=== PATIENT | female | born 1935 | race Caucasian/White ===

== ENCOUNTER 2016-04-27 11:04 | Day surgery (SDC) | payer MEDICARE, OTHER ==
[~2016-04-27] VITALS: Ht 154.9 cm; Wt 74.1 kg
[~2016-04-27 11:04] MED LIST: CRAN1CAP7 PO; LIDOCAINE 1% (10mg/ml) 2ml SDV INJ ONE; LISI10TA7 PO; LORA0.5T2 PO; SIMV20TA6 PO
--- OUTSIDE RECORDS SUMMARY | 2016-04-27 11:09 | XMS REPORT | Referral Summary ---
Author Author [facility], Immediate Care Organization [facility] Address Unknown Phone Unavailable Care Team Providers Care Matrix Plater Name Role Phone Shannon Delgado Primary Care Physician [phone] Encounter VC Date(s): 12/11/15 - 12/11/15 [facility], [address] [place] [address] Discharge Diagnosis: Right low back pain Discharge Diagnosis: Urine frequency Discharge Disposition: 01-Home or Self Care Attending Physician: Juan Walton PA-C Admitting Physician: Juan Walton PA-C Vital Signs Most recent to 1 oldest [Reference Range]: Temperature Tympanic 36.5 degC [36.6-38.1 degC] *LOW* (12/11/15 4:58 PM) Peripheral Pulse 78 bpm Rate [60-100 bpm] (12/11/15 4:58 PM) Respiratory Rate 18 br/min [14-20 br/min] (12/11/15 4:58 PM) Blood Pressure 158/90 mmHg [90-140/60-90 mmHg] *HI* (12/11/15 4:58 PM) SpO2 96 % (12/11/15 4:58 PM) Problem List Condition Effective Dates Status Health Status Informant Benign essential Active hypertension (disorder)(Confirmed ) Obesity(Confirmed) Active patient Pure Active hypercholesterolemia (disorder)(Confirmed ) Allergies, Adverse Reactions, Alerts No Known Medication Allergies Medications Calcium 600+D tabs, Oral, TID, 0 Refill(s) Start Date: 09/06/13 Status: Ordered Cranberry oral capsule 0 Refill(s) Start Date: 09/06/13 Status: Ordered lisinopril 10 mg oral tablet See Instructions, TAKE ONE TABLET BY MOUTH ONCE A DAY, # 90 tabs, 1 Refill(s), eRx: [facility] #[id number], TAKE ONE TABLET BY MOUTH ONCE A DAY Start Date: 10/05/15 Status: Ordered multivitamin Daily, 0 Refill(s) Start Date: 09/06/13 Status: Ordered simvastatin 20 mg oral tablet See Instructions, TAKE ONE TABLET BY MOUTH EVERY NIGHT AT BEDTIME, # 90 tabs, 1 Refill(s), eRx: [facility] #[id number], TAKE ONE TABLET BY MOUTH EVERY NIGHT AT BEDTIME Start Date: 10/05/15 Status: Ordered triamcinolone 0.5% topical cream 1 lily, Topical, BID, # 60 g, 2 Refill(s), Pharmacy: [facility] #[id number] Start Date: 03/12/14 Status: Ordered Results Urinalysis Most recent to 1 oldest [Reference Range]: UA Color Edgard *ABN* (12/11/15 5:05 PM) UA Appear Clear (12/11/15 5:05 PM) UA pH [5.0-8.0] 5.0 (12/11/15 5:05 PM) UA Leuk Est - 1 [Negative] (12/11/15 5:05 PM) UA Nitrite - 2 [Negative] (12/11/15 5:05 PM) UA Protein Negative [Negative] (12/11/15 5:05 PM) UA Glucose - 3 [Negative] (12/11/15 5:05 PM) UA Ketones Negative [Negative] (12/11/15 5:05 PM) UA Urobilinogen 1.0 mg/dL [<=1.0 mg/dL] (12/11/15 5:05 PM) UA Bili [Negative] Negative (12/11/15 5:05 PM) UA Blood [Negative] - 4 (12/11/15 5:05 PM) UA Spec Grav 1.010 [1.003-1.030] (12/11/15 5:05 PM) Type Cl Catch (12/11/15 5:05 PM) UA WBC [0-4 /HPF] >50 /HPF *ABN* (12/11/15 5:05 PM) UA RBC [0-2] 0-2 (12/11/15 5:05 PM) Epithelial Cells 0-2 (12/11/15 5:05 PM) UA Bacteria Rare (12/11/15 5:05 PM) 1Result Comment: This component of the urinalysis cannot be performed due to the presence of dye stain which interferes with the testing procedure. 2Result Comment: This component of the urinalysis cannot be performed due to the presence of dye stain which interferes with the testing procedure. 3Result Comment: This component of the urinalysis cannot be performed due to the presence of dye stain which interferes with the testing procedure. 4Result Comment: This component of the urinalysis cannot be performed due to the presence of dye stain which interferes with the testing procedure. Immunizations Vaccine Date Refusal Reason influenza virus vaccine, inactivated 12/02/15 influenza virus vaccine, inactivated 11/26/14 influenza virus vaccine, inactivated1 11/20/13 influenza virus vaccine, live 11/16/12 influenza virus vaccine, live 11/28/11 pneumococcal 13-valent conjugate vaccine 09/09/14 pneumococcal 23-polyvalent vaccine 10/27/08 tetanus-diphth toxoids (Td) adult/adol 09/12/09 1Location History: See scanned document Procedures No data available for this section Social History Social History Type Response Smoking Status Never smoker Assessment and Plan Extracted from: Title: R ankle Author: Juan Walton PA-C Date: 12/11/15 Assessment/Plan Right low back pain I recommended heat pack, she hasan vibratory that she uses when she has low back pain for pain control. Also recommended that Tylenol. Recommend supportive care. Rest. Practice good hand hygiene. Increase fluids. FU with PCP if not improving, worsening symptoms, or as needed. Questions were answered. Patient verbalized understanding. Patient left in stable condition. Urine frequency At this time I recommended a follow-up tomorrow if she still symptomatic, we may have some more preliminary data back from the urine. If she develops severe symptoms, fever or severe abdominal pain or suprapubic painfollow-up in ER.
--- OUTSIDE RECORDS SUMMARY | 2016-04-27 11:09 | XMS REPORT | Continuity of Care Document ---
Author Author [facility] Organization [facility] Address Unknown Phone Unavailable Support Name Relationship Address Phone CASSI DELUNA MD Caregiver [address] [place] [address] Unavailable ZARINA HOGAN MD Caregiver [address] [place] [address] Unavailable MARCO GALLEGO Next Of Kin [address] [place] [phone] Insurance Providers Guarantor Noris Gallego Address [address] [place] [address] Email DENIED TO PT PORTAL Payer [facility] Preferred Policy Number [id number] Subscriber's Name Marco Gallego Relationship 01 Spouse Group Number [id number] Effective Date 04 Payer Medicare Policy Number [id number] Subscriber's Name Noris Gallego Relationship 18 Self Effective Date 02 Advance Directives Directive Response Recorded Date/Time Advanced Directives Type Unable to Obtain 12/12/15 1:10pm Chief Complaint and Reason for Visit Chief Complaint Female Urogenital Problems Reason for Visit Urinary tract infection Problems Past Problems Medical Problem Onset Date Urinary tract infection Unknown Medications Current Home Medications Medication Dose Units Route Directions Days Qty Instructions Start Date Cephalexin (Keflex) 500 Mg Capsule 1 Cap Oral Four Times Daily 7 Days 28 Capsule 12/12/15 Lisinopril 10 Mg Tablet 10 Mg Oral Daily for Hypertension Phenazopyridine Hcl (Pyridium) 200 Mg Tablet 190 Mg Oral Every Eight Hours 10 Tablet TAKE ONE TABLET EVERY 8 HOUR PRN BLADDER PAIN 12/12/15 Simvastatin 20 Mg Tablet 20 Mg Oral Bedtime Take 1 tablet, by mouth , 1 time a day (at BEDTIME). 12/12/15 Social History Query Response Start Date Stop Date Smoking Status Unknown if ever smoked Hospital Discharge Instructions No hospital discharge instructions. Plan of Care Discharge Date 12/12/15 1:38pm Disposition 01 DISCHARGED HOME, SELF-CARE Condition at Discharge Stable Instructions/Education Provided DI for Urinary Tract Infection (UTI) Prescriptions See Medication Section Referrals ZARINA HOGAN MD Order Date: 2 Days Address: [address] [place] [address] [phone] Note: Additional Instructions/Education DRINK PLENTY OF FLUIDS. TAKE ANTIBIOTICS SCHEDULED. NEXT DOSE WILL BE AT DINNER AND THEN BEDTIME (WILL TAKE 4 TIMES A DAY; TRY TO FIT IN THREE DOSES TODAY) TAKE PYRIDIUM OR AZO FOR SYMPTOMS; DO NOT TAKE BOTH. TAKE MOTRIN AND /OR TYLENOL FOR PAIN. RECOMMEND FOLLOW UP WITH DR HOGAN ON MONDAY IF NOT IMPROVING. RETURN TO THE ER OVER THE WEEKEND IF YOUR CONDITION WORSENS; ESPECIALLY IF YOU DEVELOP FEVER OR CHILLS, NAUSEA OR VOMITING. Functional Status No functional status results. Allergies, Adverse Reactions, Alerts No known allergies. Immunizations No immunization records. Vital Signs Acute Vital Signs Vital Response Date/Time Temperature (Fahrenheit) 98.3 deg F (96.8 - 99.1) 12/12/2015 1:10pm Temperature (Calculated Celsius) 36.15957 degrees C (36.0 - 37.3) 12/12/2015 1:10pm Pulse Rate (adult) 82 bpm (60 - 100) 12/12/2015 1:10pm Respiratory Rate 20 breaths/min (10 - 20) 12/12/2015 1:10pm O2 Sat by Pulse Oximetry 95 % (90 - 100) 12/12/2015 1:10pm Blood Pressure 122/75 mm Hg 12/12/2015 1:10pm Height (Feet) 5 feet 12/12/2015 1:10pm Height (Inches) 3.00 inches 12/12/2015 1:10pm Weight (Kilograms) 68.000 kg 12/12/2015 1:10pm Body Mass Index (BMI) 26.0 12/12/2015 1:10pm Results Laboratory Results Test Name Result Units Flags Reference Collection Date/Time Result Date/ Time Comments Urine Collection Type VOIDED-NOT CC-MIDSTR 12/12/2015 12:28pm 12/11 12:46pm Urine Color YELLOW YELLOW 12/12/2015 12:28pm 12/12/2015 12:46pm Urine Turbidity CLOUDY CLEAR 12/12/2015 12:28pm 12/12/2015 12:46pm Urine Specific [place] 1.025 1.015-1.025 12/12/2015 12:28pm 2015 12:46pm Urine pH 6.0 5.0-8.0 12/12/2015 12:28pm 12/12/2015 12:46pm Urine Leukocyte Esterase 2+ A NEGATIVE 12/12/2015 12:28pm 12/12/2015 12:46pm Urine Nitrite POSITIVE A NEGATIVE 12/12/2015 12:pm 12/12/2015 12: 46pm Urine Protein 2+ A NEGATIVE 12/12/2015 12:pm 12/12/2015 12:46pm Urine Glucose (UA) NEGATIVE NEGATIVE 12/12/2015 12:28pm 12/12/2015 12 :46pm Urine Ketones NEGATIVE NEGATIVE 12/12/2015 12:28pm 12/12/2015 12: 46pm Urine Urobilinogen 0.2 EU/DL NORMAL 12/12/2015 12:28pm 12/12/2015 12: 46pm Urine Bilirubin NEGATIVE NEGATIVE 12/12/2015 12:pm 12/12/2015 12: 46pm Urine Blood 3+ A NEGATIVE 12/12/2015 12:12/12/2015 12:46pm Urine WBC TNTC /HPF H 0-5 12/12/2015 12:28pm 12/12/2015 1:02pm Urine RBC TNTC /HPF H 0-3 12/12/2015 12:28pm 12/12/2015 1:02pm Urine Bacteria TRACE H NEGATIVE 12/12/2015 12:28pm 12/12/2015 1:02pm Urine Culture Indicated CULT REFLEXED &SETUP 12/12/2015 12:28pm 1:02pm Microbiology Results Procedure Source Organism/Result Collection Date/Time Result Date/Time Result Status Urine Culture Urine, Voided-Not Cc-Midstream CULTURE INITIATED - RESULTS PENDING 12/12/2015 1:02pm 12/12/2015 1:03pm Preliminary Procedures No known history of procedures. Encounters Encounter Location Arrival/Admit Date Discharge/Depart Date Attending Provider Departed Emergency Room [facility] 12/12/15 12:14pm 12/12/15 1: 38pm CASSI DELUNA MD Recent Diagnosis
--- OUTSIDE RECORDS SUMMARY | 2016-04-27 11:09 | XMS REPORT | Referral Summary ---
Author Author [facility], [facility] Medicine Organization [facility] Address Unknown Phone Unavailable Care Team Providers Care Mess Attendant Name Role Phone Shannon Delgado Primary Care Physician [phone] Encounter VC Date(s): 03/09/16 - 03/09/16 [facility], [address] [place] [address]- Discharge Diagnosis: Pure hypercholesterolemia Discharge Diagnosis: Contusion of back Discharge Diagnosis: Benign essential hypertension Discharge Disposition: 01-Home or Self Care Attending Physician: Micky Delgado MD Admitting Physician: Micky Delgado MD Vital Signs Most recent to 1 oldest [Reference Range]: Temperature Tympanic 36.1 degC [36.6-38.1 degC] *LOW* (03/09/16 8:33 AM) Peripheral Pulse 80 bpm Rate [60-100 bpm] (03/09/16 8:33 AM) Respiratory Rate 20 br/min [14-20 br/min] (03/09/16 8:33 AM) Blood Pressure 120/74 mmHg [90-140/60-90 mmHg] (03/09/16 8:33 AM) Problem List Condition Effective Dates Status Health Status Informant Benign essential Active hypertension (disorder)(Confirmed ) Obesity(Confirmed) Active patient Pure Active hypercholesterolemia (disorder)(Confirmed ) Allergies, Adverse Reactions, Alerts No Known Medication Allergies Medications Calcium 600+D tabs, Oral, TID, 0 Refill(s) Start Date: 09/06/13 Status: Ordered Cipro 500 mg oral tablet 500 mg 1 tabs, Oral, q12hr, X 7 days, # 14 tabs, 0 Refill(s), Pharmacy: [facility] #[id number], 1 tabs Oral q12hr,x7 days Start Date: 03/07/16 Stop Date: 03/14/16 Status: Ordered Cranberry oral capsule 0 Refill(s) Start Date: 09/06/13 Status: Ordered lisinopril 10 mg oral tablet See Instructions, TAKE ONE TABLET BY MOUTH ONCE A DAY, # 90 tabs, 1 Refill(s), eRx: [facility] #[id number], TAKE ONE TABLET BY MOUTH ONCE A DAY Start Date: 10/05/15 Status: Ordered multivitamin Daily, 0 Refill(s) Start Date: 09/06/13 Status: Ordered simvastatin 20 mg oral tablet See Instructions, TAKE ONE TABLET BY MOUTH EVERY NIGHT AT BEDTIME, # 90 tabs, 1 Refill(s), eRx: [facility] #[id number], TAKE ONE TABLET BY MOUTH EVERY NIGHT AT BEDTIME Start Date: 10/05/15 Status: Ordered triamcinolone 0.5% topical cream 1 lily, Topical, BID, # 60 g, 2 Refill(s), Pharmacy: [facility] #[id number] Start Date: 03/12/14 Status: Ordered VINEGAR CAP VINEGAR CAP, Oral, Daily, 0 Refill(s) Start Date: 03/09/16 Status: Ordered Results No data available for this section Immunizations Given and Recorded Vaccine Date Status Refusal Reason influenza virus vaccine, inactivated 12/02/15 Given influenza virus vaccine, inactivated 11/26/14 Given influenza virus vaccine, inactivated1 11/20/13 Recorded influenza virus vaccine, live 11/16/12 Given influenza virus vaccine, live 11/28/11 Given pneumococcal 13-valent conjugate vaccine 09/09/14 Given pneumococcal 23-polyvalent vaccine 10/27/08 Recorded tetanus-diphth toxoids (Td) adult/adol 09/12/09 Recorded 1Location History: See scanned document Procedures No data available for this section Social History Social History Type Response Smoking Status Never smoker Assessment and Plan Extracted from: Title: Office Visit Note Author: Micky Delgado MD Date: 03/09/16 Assessment/Plan 1.Benign essential hypertension Blood pressure isadequately controlled. Medications reviewed no changes are recommended. Recent laboratory studies reviewed. Report card reviewed and provided. Follow-up in 6 months. 2.Pure hypercholesterolemia Recent laboratory studies reviewed and cholesterol levelsare stable. Continue current treatment plan without change. 3.Contusion of back We discussed her recent fall. She isgotten up on asmall stool or bladder. I encouraged her to avoidthat in the future to reduce her fall risk. We talked about the potential for more serious injury. No specific treatment at this time things appear to be healing well.
--- OUTSIDE RECORDS SUMMARY | 2016-04-27 11:09 | XMS REPORT | Continuity of Care Document ---
Author Author [facility] Organization [facility] Address Unknown Phone Unavailable Allergies Medications Problems Procedures Results Encounters ACCT No. Visit Date/Time Discharge Status Pt. Type Provider Facility Loc./Unit Complaint [id number] 03/11/2013 09:31:00 03/11/2013 23 :59:59 CLS Outpatient
--- OUTSIDE RECORDS SUMMARY | 2016-04-27 11:09 | XMS REPORT | Referral Summary ---
Author Author [facility], [facility] Organization [facility] Address Unknown Phone Unavailable Care Team Providers Care Second Hand Name Role Phone Shannon Delgado Primary Care Physician [phone] Encounter VC Date(s): 12/02/15 - 12/02/15 [facility], [address] [place] [address] [place] Discharge Disposition: 01-Home or Self Care Attending Physician: Micky Delgado MD Admitting Physician: Micky Delgado MD Vital Signs No data available for this section Problem List Condition Effective Dates Status Health [...] DAY, # 90 tabs, 1 Refill(s), eRx: [facility] #[id number], TAKE ONE TABLET BY MOUTH ONCE A DAY Start Date: 10/05/15 Status: Ordered LORazepam 0.5 mg oral tablet 0.5 mg 1 tabs, Oral, TID, as needed for anxiety, [place], # 20 tabs, 0 Refill( s) Start Date: 09/10/15 Status: Ordered multivitamin Daily, 0 Refill(s) Start Date: 09/06/13 Status: Ordered simvastatin 20 mg oral tablet See Instructions, TAKE ONE TABLET BY MOUTH EVERY NIGHT AT BEDTIME, # 90 tabs, 1 Refill(s), eRx: [facility] #[id number], TAKE ONE TABLET BY MOUTH EVERY NIGHT AT BEDTIME Start Date: 10/05/15 Status: Ordered triamcinolone 0.5% topical cream 1 lily, Topical, BID, # 60 g, 2 Refill(s), Pharmacy: [facility] #[id number] Start Date: 03/12/14 Status: Ordered Results No data available for this section Immunizations Vaccine Date Refusal Reason influenza virus [...] Smoking Status Never smoker Assessment and Plan No data available for this section
[2016-04-27 11:31] VITALS: BP 151/71; PULSE 87; RESP 15; TEMP 98.6; O2SAT 96; Ht 154.9 cm; Wt 74.1 kg
[2016-04-27] MEDS: TROPICAMIDE 1% EYE DROPS 3ml LEFT EYE SCH ×3 (12:06→12:17)
[2016-04-27] MEDS: PHENYLEPHRINE 2.5% EYE DROPS 5ml LEFT EYE SCH ×3 (12:07→12:17)
[2016-04-27] MEDS: CYCLOPENTOLATE 2% EYE DROPS 2ml LEFT EYE SCH ×3 (12:07→12:17)
[2016-04-27] MEDS: NEPAFENAC 0.1% EYE DROPS 3ml LEFT EYE SCH ×3 (12:07→12:17)
[2016-04-27] MEDS: PROPARACAINE 0.5% EYE DROPS 15ml LEFT EYE SCH ×3 (12:07→12:17)
[2016-04-27] MEDS: MOXIFLOXACIN 0.5% EYE DROPS 3ml LEFT EYE SCH ×3 (12:07→12:17)
[2016-04-27] MEDS ORDERED: MIDAZOLAM 2mg/2ml INJECTION ONE (14:35)
[2016-04-27] MEDS ORDERED: SALINE FLUSH 10ml SYRINGE ONE ×2 (14:36→14:43)
--- NOTE | 2016-04-27 14:59 | ANESPREOP ---
Anesthesia Record Date and Time DATE: 04/27/16 TIME: 1424 Proposed Surgical Procedure PE WITH IOL OS Allergies: Coded Allergies: No Known Allergies (Unverified , 04/27/16) Ht/Wt/BMI Height: 5 ' 1.00 " Weight: 74.100 kg BMI: 30.9 kg/m2 Vital Signs Date Time Temp Pulse Resp B/P Pulse Ox O2 Delivery O2 Flow Rate FiO2 04/27/16 11:31 98.6 87 15 151/71 96 Room Air Medications Inpatient Medications Current Medications Medications (Trade) Dose Ordered Sig/Kirill Start Time Stop Time Status Last Admin Dose Admin Cyclopentolate HCl (Cyclogyl 2%) 1 drop Q5M 04/27/16 16:00 04/27/16 16:11 04/27/16 12:17 1 DROP Tropicamide (Mydriacyl 1% Eye Drops) 1 drop Q5M 04/27/16 16:00 04/27/16 16:11 04/27/16 12:17 1 DROP Proparacaine HCl (Alcaine 0.5% Eye Drops) 1 drop Q5M 04/27/16 16:00 04/27/16 16:11 04/27/16 12:17 1 DROP Tetracaine HCl (Tetracaine 0.5% Eye Drops) 1 drop PRN PRN 04/27/16 16:00 Moxifloxacin HCl (Vigamox) 1 drop Q5M 04/27/16 16:00 04/27/16 16:11 04/27/16 12:17 1 DROP Nepafenac (Nevanac 0.1% Eye Drops) 1 drop Q5M 04/27/16 16:00 04/27/16 16:11 04/27/16 12:17 1 DROP Phenylephrine HCl (Timur-Synephrine 2.5% Eye Drops) 1 drop Q5M 04/27/16 16:00 04/27/16 16:11 04/27/16 12:17 1 DROP Cranberry Conc/Ascorbic Acid (Cranberry Concentrate Softgel) 1 Each Capsule, 1 CAP PO DAILY, (Reported) Last Taken: on 04/26/16 0830 Lisinopril (Lisinopril) 10 Mg Tablet, 10 MG PO DAILY, (Reported) Last Taken: on 04/26/16 0830 Lorazepam (Lorazepam) 0.5 Mg Tablet, 0.5 MG PO DAILY PRN for ANXIETY, (Reported) Last Taken: on Unknown Date & Time Simvastatin (Simvastatin) 20 Mg Tablet, 20 MG PO HS, (Reported) Take 1 tablet, by mouth, 1 time a day (at BEDTIME). Last Taken: on 04/26/16 2030 Currently on Beta Oscar: No Medical/Surgical History Anesthesia PMH: Reports: *Hypertension, Arthritis, Denies: Anesthesia Reactions (NO AIRWAY ISSUES), Blood Transfusion Reac, Cancer, Clotting Problems , Glaucoma, Malignant Hyperthermia, Sleep Apnea Smoking Status: Never smoker Has pt. smoked today?: No Use Chewing Tobacco?: No Second Hand Exposure: No Substance Use Type: does not use Alcohol Intake: none Last Drink: hours (ago) (8) HX of Last Menstrual Period: IN 1987 Past Surgical History Orthopedic Surgeries: Abdominal Surgeries: Genitourinary Surgeries: Cardiac Surgeries: Endocrine Surgeries: Reproductive Surgeries: Neurological Surgeries: Ear Surgeries: Nose Surgeries: Throat Surgeries: Other Surgeries: Yes - TEETH REMOVAL Anesthesia Adverse Reactions: FOUND none Family Hx of Anesthesia Advers: none Hx of Motion Sickness: No Physical Exam Respiratory: Lungs clear Cardiovascular: FOUND Regular rate, rhythm Airway Assessment Mallampati Score: II TMD: 3 Fingerbreadths Neck Extension: Good Overall Assessment: No Airway Concerns ASA: 2 Plan Anesthesia Plan: MAC Discussion Discussed risks/options/alternatives of anesthesia and questions answered. Patient consents. Nursing pain assessment noted. Present: Spouse Attestation Statement Prior to the delivery of any anesthetic medication, I examined the patient, developed the plan, obtained the patient's consent and discussed the risk and benefits of the procedure with the patient/guardian. MAHENDRA BERGER CRNA Apr 27, 2016 14:58
[2016-04-27 15:03] VITALS: BP 152/63; PULSE 89; RESP 14; TEMP 96.7; O2SAT 96
--- NOTE | 2016-04-27 15:07 | ANESPO ---
Post-Op Note Date 04/27/16 Time: 15:06 Status Pt Participated in Evaluation: Pt participated in person Vital Signs Date Time Temp Pulse Resp B/P Pulse Ox O2 Delivery O2 Flow Rate FiO2 04/27/16 11:31 98.6 87 15 151/71 96 Room Air Respiratory Function: Airway patent Cardiovascular Function: Regular pulse Mental Status: Alert/oriented Pain Level Intensity: 0 Hydration: Taking po fluids Complications during Recovery None apparent Follow-Up Instructions Instructions Per Surgeon MAHENDRA BERGER CRNA Apr 27, 2016 15:07
[2016-04-27 15:18] VITALS: BP 128/59; PULSE 80; RESP 12; O2SAT 95
[2016-04-27 15:33] VITALS: BP 152/65; PULSE 80; RESP 16; TEMP 98.6; O2SAT 94
[2016-04-27] MEDS ORDERED: TETRACAINE 0.5% EYE DROPS 4ml BOTTLE LEFT EYE PRN (16:00)
--- NOTE | 2016-05-02 11:39 | OPNOTEF ---
DATE OF PROCEDURE 04/27/2016 PREOPERATIVE DIAGNOSIS Cataract, left eye. POSTOPERATIVE DIAGNOSIS Cataract, left eye. PROCEDURE Phacoemulsification with implantation of 25.5 diopter intraocular lens model SA60AT, left eye. ANESTHESIA Topical block monitored by Jame Johnson CRNA. SURGEON Bryanna Santoyo MD PROCEDURE IN DETAIL The patient came to the [facility] and was escorted to the preanesthesia area where the appropriate monitoring, eyedrops, and topical anesthetic were administered. The patient was then taken into the operating room and the eye was prepped and draped in the standard sterile manner for ophthalmic surgery. A lid speculum was placed between the lids and the eye was irrigated with 5% Povidine iodine solution, followed by copious irrigation with sterile balanced salt solution after three minutes. The eye surgery began with the initial side port incision through the peripheral clear cornea. Lidocaine preservative free 1% was injected into the anterior chamber. Viscoelastic was exchanged for aqueous. A clear cornea incision was made just anterior to the vascular arcade with a steel keratome blade. A continuous curvilinear anterior capsulorrhexis was performed, followed by hydrodissection and hydrodelineation of the cataract. The phacoemulsification tip was then inserted through the incision into the anterior chamber, and the nucleus of the cataract was emulsified. The remaining cortical material was then aspirated and the posterior capsule was cleaned and polished. A posterior chamber intraocular lens was then implanted into the capsular bag with viscoelastic support. The viscoelastic was then removed from the eye by aspiration. The clear cornea incision was inspected to ensure a water tight seal. The lid speculum was removed. Vigamox, Nevanac, and Brimonidine eyedrops were instilled onto the eye and an eye shield was taped over the eye. The patient was dismissed to the responsible green party with postoperative instructions and a planned follow-up visit. KEITH
== END 2016-04-27 15:43 | disposition home or self-care (01) ==
LOC: NSC 11:04
PROVIDERS: ATTEND Ophthalmology
DX: H25.813 Combined forms of age-related cataract, bilateral (principal); H53.022 Refractive amblyopia, left eye; I10 Essential (primary) hypertension; E78.00 Pure hypercholesterolemia, unspecified; Z79.899 Other long term (current) drug therapy
CPT/HCPCS: 66984; A9270; C1780; J2250

== ENCOUNTER 2016-06-01 10:45 | Day surgery (SDC) | payer MEDICARE, OTHER ==
[~2016-06-01] VITALS: Ht 154.9 cm; Wt 73.6 kg
[~2016-06-01 10:45] MED LIST changes: -LIDOCAINE 1% (10mg/ml) 2ml SDV INJ ONE
--- OUTSIDE RECORDS SUMMARY | 2016-06-01 10:50 | XMS REPORT | Continuity of Care Document ---
Author Author [facility] Organization [facility] Address Unknown Phone Unavailable Support Name Relationship Address Phone ZARINA HOGAN MD Caregiver [address] [place] [address] Unavailable MARIA DEL CARMEN BARAJAS MD Caregiver Unknown Unavailable MARCO GALLEGO Next Of Kin [address] [place] [phone] Insurance Providers Guarantor Noris Gallego Address [address] [place] [address] Email DENIED 16 Payer [facility] Preferred Policy Number [id number] Subscriber's Name Marco Gallego Relationship 01 Spouse Group Number [id number] Effective Date 04 Payer Medicare Policy Number [id number] Subscriber's Name Noris Gallego Relationship 18 Self Effective Date 02 Advance Directives Directive Response Recorded Date/Time Dr Ordered Resuscitation Status Limited Code 04/26/16 10:43am Resuscitation Documents on File No 04/27/16 12:09pm DPOA for Healthcare Only No 04/27/16 12:09pm Living Will No 04/27/16 12:09pm Problems Past Problems Medical Problem Onset Date Urinary tract infection Unknown Medications Current Home Medications Medication Dose Units Route Directions Days Qty Instructions Start Date Cranberry Conc/Ascorbic Acid (Cranberry Concentrate Softgel) 1 Each Capsule 1 Cap Oral Daily 04/26/16 Lisinopril 10 Mg Tablet 10 Mg Oral Daily for Hypertension Lorazepam 0.5 Mg Tablet 0.5 Mg Oral Daily as needed for Anxiety 04/26/16 Simvastatin 20 Mg Tablet 20 Mg Oral Bedtime Take 1 tablet, by mouth , 1 time a day (at BEDTIME). 12/12/15 Social History Social History Problem Response Recorded Date/Time Onset Date Status Chewing Tobacco Status No 04/26/2016 2:08pm Not Applicable Not Applicable Hx Substance Use No 04/26/2016 2:08pm Not Applicable Not Applicable Hx Alcohol Use No 04/26/2016 2:08pm Not Applicable Not Applicable Has the pt used tobacco in the last 12 months No 04/26/2016 2:08pm Not Applicable Not Applicable Query Response Start Date Stop Date Smoking Status Never smoker Hospital Discharge Instructions No hospital discharge instructions. Plan of Care Discharge Date 04/27/16 3:43pm Prescriptions See Medication Section Functional Status Query Response Date Recorded Ability to complete ADL's impeded by No change April 27, 2016 12:09pm Allergies, Adverse Reactions, Alerts No known allergies. Immunizations Query Response on File Recorded Date/Time Hx Influenza Vaccination Y fall 201504/26/16 2:08pm Hx Pneumococcal Vaccination Y UNKNOWN DATE 04/26/16 2:08pm Hx Influenza Vaccination Y fall 201504/26/16 2:08pm Vital Signs Acute Vital Signs Vital Response Date/Time Temperature (Fahrenheit) 98.6 deg F (96.8 - 99.1) 04/27/2016 3:33pm Temperature (Calculated Celsius) 37.19868 degrees C (36.0 - 37.3) 04/27/2016 3:33pm Temperature Source Oral 04/27/2016 3:33pm Pulse Rate (adult) 80 bpm (60 - 100) 04/27/2016 3:33pm Respiratory Rate 16 breaths/min (10 - 20) 04/27/2016 3:33pm O2 Sat by Pulse Oximetry 94 % (90 - 100) 04/27/2016 3:33pm Oxygen Delivery Method Room Air 04/27/2016 3:33pm Blood Pressure 152/65 mm Hg 04/27/2016 3:33pm Blood Pressure Source Automatic Cuff 04/27/2016 3:33pm Height (Feet) 5 feet 04/27/2016 11:31am Height (Inches) 1.00 inches 04/27/2016 11:31am Weight (Kilograms) 74.100 kg 04/27/2016 11:31am Body Mass Index (BMI) 30.9 04/27/2016 11:31am Results No known relevant diagnostic tests, laboratory data and/or discharge summary. Procedures Procedure Status Date Provider(s) Cataract extraction, left Completed 04/27/16 MARIA DEL CARMEN BARAJAS MD Encounters Encounter Location Arrival/Admit Date Discharge/Depart Date Attending Provider Departed [facility] 04/27/16 11:04am 04/27/16 3 :43pm MARIA DEL CARMEN BARAJAS MD
--- OUTSIDE RECORDS SUMMARY | 2016-06-01 10:50 | XMS REPORT | Continuity of Care Document ---
Author Author [facility] Organization [facility] Address Unknown Phone Unavailable Allergies Medications Problems Procedures Results Encounters ACCT No. Visit Date/Time Discharge Status Pt. Type Provider Facility Loc./Unit Complaint [id number] 03/11/2013 09:31:00 03/11/2013 23 :59:59 [facility] Outpatient
[2016-06-01 11:45] VITALS: BP 168/78; PULSE 81; RESP 18; TEMP 98.6; O2SAT 97; Ht 154.9 cm; Wt 73.6 kg
[2016-06-01] MEDS: PHENYLEPHRINE 2.5% EYE DROPS 5ml RIGHT EYE SCH ×3 (12:05→12:24)
[2016-06-01] MEDS: MOXIFLOXACIN 0.5% EYE DROPS 3ml RIGHT EYE SCH ×3 (12:05→12:24)
[2016-06-01] MEDS: NEPAFENAC 0.1% EYE DROPS 3ml RIGHT EYE SCH ×3 (12:05→12:24)
[2016-06-01] MEDS: TROPICAMIDE 1% EYE DROPS 3ml RIGHT EYE SCH ×3 (12:05→12:24)
[2016-06-01] MEDS: CYCLOPENTOLATE 2% EYE DROPS 2ml RIGHT EYE SCH ×3 (12:05→12:24)
[2016-06-01] MEDS: PROPARACAINE 0.5% EYE DROPS 15ml RIGHT EYE SCH ×3 (12:05→12:24)
--- NOTE | 2016-06-01 12:16 | ANESPREOP ---
Anesthesia Record Date and Time DATE: 06/01/16 TIME: 12:14 Proposed Surgical Procedure PE W/IOL OD NPO since: mn Allergies: Coded Allergies: No Known Allergies (Unverified , 06/01/16) Ht/Wt/BMI Height: 5 ' 1.00 " Weight: 73.600 kg BMI: 30.7 kg/m2 Vital Signs Date Time Temp Pulse Resp B/P Pulse Ox O2 Delivery O2 Flow Rate FiO2 06/01/16 11:45 98.6 81 18 168/78 97 Room Air Medications Inpatient Medications Current Medications Medications (Trade) Dose Ordered Sig/Kirill Start Time Stop Time Status Last Admin Dose Admin Cyclopentolate HCl (Cyclogyl 2%) 1 drop Q5M 06/01/16 16:30 06/01/16 16:41 06/01/16 12:05 1 DROP Tropicamide (Mydriacyl 1% Eye Drops) 1 drop Q5M 06/01/16 16:30 06/01/16 16:41 06/01/16 12:05 1 DROP Proparacaine HCl (Alcaine 0.5% Eye Drops) 1 drop Q5M 06/01/16 16:30 06/01/16 16:41 06/01/16 12:05 1 DROP Phenylephrine HCl (Timur-Synephrine 2.5% Eye Drops) 1 drop Q5M 06/01/16 16:30 06/01/16 16:41 06/01/16 12:05 1 DROP Moxifloxacin HCl (Vigamox) 1 drop Q5M 06/01/16 16:30 06/01/16 16:41 06/01/16 12:05 1 DROP Nepafenac (Nevanac 0.1% Eye Drops) 1 drop Q5M 06/01/16 16:30 06/01/16 16:41 06/01/16 12:05 1 DROP Cranberry Conc/Ascorbic Acid (Cranberry Concentrate Softgel) 1 Each Capsule, 1 CAP PO DAILY, (Reported) Last Taken: on 06/01/16 0800 Lisinopril (Lisinopril) 10 Mg Tablet, 10 MG PO DAILY, (Reported) Last Taken: on 06/01/16 0800 Lorazepam (Lorazepam) 0.5 Mg Tablet, 0.5 MG PO DAILY PRN for ANXIETY, (Reported) Last Taken: on Unknown Date & Time Simvastatin (Simvastatin) 20 Mg Tablet, 20 MG PO HS, (Reported) Take 1 tablet, by mouth, 1 time a day (at BEDTIME). Last Taken: on 05/31/16 2100 Currently on Beta Oscar: No Medical/Surgical History Anesthesia PMH: Reports: *Hypertension, Arthritis, Obesity Smoking Status: Never smoker Use Chewing Tobacco?: No Second Hand Exposure: No Substance Use Type: does not use Alcohol Intake: none Last Drink: hours (ago) Past Surgical History Orthopedic Surgeries: Abdominal Surgeries: Genitourinary Surgeries: Cardiac Surgeries: Endocrine Surgeries: Reproductive Surgeries: Neurological Surgeries: Ear Surgeries: Nose Surgeries: Throat Surgeries: Other Surgeries: Yes - TEETH REMOVAL ,LEFT CATARACT REMOVAL Anesthesia Adverse Reactions: FOUND none Family Hx of Anesthesia Advers: none Hx of Motion Sickness: No Physical Exam Respiratory: Lungs clear Cardiovascular: FOUND Regular rate, rhythm Airway Assessment Mallampati Score: II TMD: 2 Fingerbreadths Neck Extension: Fair Teeth: Upper Dentures Overall Assessment: May Be Diff Intubation (small mouth opening and short TMD) ASA: 2 Plan Anesthesia Plan: MAC Discussion Discussed risks/options/alternatives of anesthesia and questions answered. Patient consents. Nursing pain assessment noted. Attestation Statement Prior to the delivery of any anesthetic medication, I examined the patient, developed the plan, obtained the patient's consent and discussed the risk and benefits of the procedure with the patient/guardian. FERDINAND BAUER CRNA Jun 01, 2016 12:16
[2016-06-01] MEDS ORDERED: SALINE FLUSH 10ml SYRINGE ONE (14:07)
[2016-06-01] MEDS ORDERED: MIDAZOLAM 2mg/2ml INJECTION ONE (14:07)
[2016-06-01 14:36] VITALS: BP 151/63; PULSE 75; RESP 16; TEMP 98.2; O2SAT 97
--- NOTE | 2016-06-01 14:40 | ANESPO ---
Post-Op Note Date 06/01/16 Time: 14:40 Status Pt Participated in Evaluation: Pt participated in person Vital Signs Date Time Temp Pulse Resp B/P Pulse Ox O2 Delivery O2 Flow Rate FiO2 06/01/16 11:45 98.6 81 18 168/78 97 Room Air Respiratory Function: Airway patent, Regular respirations Cardiovascular Function: Regular pulse Mental Status: Alert/oriented Pain Level Intensity: 0 Hydration: Taking po fluids Complications during Recovery None apparent Follow-Up Instructions Instructions Per Surgeon FERDINAND BAUER CRNA Jun 01, 2016 14:40
[2016-06-01 14:50] VITALS: BP 135/60; PULSE 78; RESP 16; O2SAT 96
[2016-06-01 15:05] VITALS: BP 130/52; PULSE 80; RESP 18; O2SAT 95
[2016-06-01] MEDS ORDERED: TETRACAINE 0.5% EYE DROPS 4ml BOTTLE RIGHT EYE ONE (16:30)
[2016-06-01] MEDS ORDERED: LIDOCAINE 1% (10mg/ml) 2ml SDV INJ ONE (16:30)
[2016-06-01] MEDS ORDERED: NS FOR INJ. 20 ML VIAL INJ ONE (16:36)
[2016-06-01] MEDS ORDERED: LIDOCAINE 1% (10mg/ml) 30ml SDV ID ONE (16:36)
[2016-06-01] MEDS ORDERED: VANCOMYCIN 500 MG INJECTION IV ONE (16:36)
[2016-06-01] MEDS ORDERED: BRIMONIDINE 0.2% EYE DROPS 5ml BOTH EYES ONE (16:36)
--- NOTE | 2016-06-02 11:29 | OPNOTEF ---
DATE OF PROCEDURE 06/01/2016 PREOPERATIVE DIAGNOSIS Cataract, right eye. POSTOPERATIVE DIAGNOSIS Cataract, right eye. PROCEDURE Phacoemulsification with implantation of 21.5 diopter intraocular lens model SA60AT, right eye. ANESTHESIA Topical block monitored by Edin Rodgers CRNA. SURGEON Bryanna Santoyo MD PROCEDURE IN DETAIL The patient came to the [facility] and was escorted to the preanesthesia area where the appropriate monitoring, eyedrops, and topical anesthetic were administered. The patient was then taken into the operating room and the eye was prepped and draped in the standard sterile manner for ophthalmic surgery. A lid speculum was placed between the lids and the eye was irrigated with 5% Povidine iodine solution, followed by copious irrigation with sterile balanced salt solution after three minutes. The eye surgery began with the initial side port incision through the peripheral clear cornea. Lidocaine preservative free 1% was injected into the anterior chamber. Viscoelastic was exchanged for aqueous. A clear cornea incision was made just anterior to the vascular arcade with a steel keratome blade. A continuous curvilinear anterior capsulorrhexis was performed, followed by hydrodissection and hydrodelineation of the cataract. The phacoemulsification tip was then inserted through the incision into the anterior chamber, and the nucleus of the cataract was emulsified. The remaining cortical material was then aspirated and the posterior capsule was cleaned and polished. A posterior chamber intraocular lens was then implanted into the capsular bag with viscoelastic support. The viscoelastic was then removed from the eye by aspiration. The clear cornea incision was inspected to ensure a water tight seal. The lid speculum was removed. Vigamox, Nevanac, and Brimonidine eyedrops were instilled onto the eye and an eye shield was taped over the eye. The patient was dismissed to the responsible democrat with postoperative instructions and a planned follow-up visit. KEITH
== END 2016-06-01 15:12 | disposition home or self-care (01) ==
LOC: NSC 10:45
PROVIDERS: ATTEND Ophthalmology
DX: H25.811 Combined forms of age-related cataract, right eye (principal); Z96.1 Presence of intraocular lens; H53.022 Refractive amblyopia, left eye; I10 Essential (primary) hypertension; E78.00 Pure hypercholesterolemia, unspecified; Z79.899 Other long term (current) drug therapy
CPT/HCPCS: 66984; A9270; C1780; J2250; J3370